=== PATIENT | female | born 1985 | race Caucasian/White ===

== ENCOUNTER 2018-10-02 08:18 | Outpatient (CLI) | payer BC ==
--- NOTE | 2018-10-02 09:19 | ULT ---
ULTRASOUND THYROID: DATE: 10-02-18 HISTORY: 33-year-old female with E04.1 thyroid (cystic) nodule NOS. Comparison: None available. FINDINGS: Isthmus: 0.3 cm Right lobe: 4.5 x 1.4 x 1.6 cm Left lobe: 4.8 x 1.2 x 1.5 cm At the posterior aspect of the right midpole, there is a 1.3 x 1.0 x 0.7 cm simple cyst, with smooth margins, no significant internal echoes, and no solid nodular component. The rest of the thyroid parenchyma has normal, homogeneous echogenicity and echotexture. No solid nodule is identified. IMPRESSION: 1. Benign simple cyst in the right lobe of the thyroid gland, for which no follow up is necessary. 2. Otherwise negative. POS: LOCO
== END 2018-10-02 08:19 | disposition home or self-care (01) ==
LOC: BICULT 08:18
PROVIDERS: ATTEND Otolaryngology Otolaryngic Allergy
DX: E04.1 Nontoxic single thyroid nodule (principal)
CPT/HCPCS: 76536